=== PATIENT | female | born 1990 | race Two or more races ===

== ENCOUNTER 2019-05-13 22:12 | Emergency (ER) | payer MEDICAID ==
[~2019-05-13] VITALS: Ht 154.9 cm; Wt 88.5 kg
[2019-05-13 22:35] VITALS: BP 137/94
[2019-05-13] MEDS ORDERED: TYLENOL325 MG ORAL (22:57)
--- NOTE | 2019-05-13 22:57 | Emergency Room Report ---
History of Present Illness General Chief Complaint: Upper Respiratory Illness Source: Patient Present Illness HPI 29-year-old female presents with cough, congestion, fever/chills x2 days no aggravating leaving factors severity is mild, constant patient also reports mouth ulcers that come and go, patient wanted to have her ulcers evaluated patient presents for evaluation Allergies: Coded Allergies: No Known Allergies (Unverified , 05/13/19) Patient History Past Medical History: see triage record Social History: Reports: smoking, drug use Last Menstrual Period: 05/04 Reviewed Nursing Documentation: PMH: Agreed; PSxH: Agreed Nursing Documentation-PMH Past Medical History: No Stated History Review of Systems All Other Systems: negative except mentioned in HPI Physical Exam Vital Signs Date Time Temp Pulse Resp B/P (MAP) Pulse Ox O2 Delivery O2 Flow Rate FiO2 05/13/19 22:19 98.2 73 18 137/94 (108) 100 Room Air Sp02 EP Interpretation: reviewed, normal General Appearance: well appearing, no apparent distress, alert Head: normocephalic, atraumatic Eyes: bilateral eye PERRL, bilateral eye EOMI ENT: uvula midline, moist mucus membranes, nasal congestion, other - Aphthous ulcer lateral aspect of left tongue Neck: supple, thyroid normal, supple/symm/no masses Respiratory: lungs clear, no respiratory distress, no retraction, no accessory muscle use Cardiovascular #1: normal peripheral pulses, regular rate, rhythm, no edema, no gallop, no murmur Gastrointestinal: non tender, soft, no guarding, no rebound Musculoskeletal: normal inspection Neurologic: alert, oriented x3 Psychiatric: mood/affect normal Skin: no rash, warm/dry Medical Decision Making Diagnostic Impression: Primary Impression: Upper respiratory infection Qualified Codes: J06.9 - Acute upper respiratory infection, unspecified Additional Impression: Aphthous ulcer ER Course 29-year-old female presents most likely with a viral URI additionally patient also found to have a aphthous ulcer Supportive care disposition home with return precautions follow-up with PCP Last Vital Signs Date Time Temp Pulse Resp B/P (MAP) Pulse Ox O2 Delivery O2 Flow Rate FiO2 05/13/19 22:19 98.2 73 18 137/94 (108) 100 Room Air Disposition: HOME, SELF-CARE Condition: Stable Scripts Acetaminophen (Tylenol) 325 Mg Tablet 650 MG ORAL Q6H PRN for Prn Pain/Headache/Temp > 101, #30 TAB 0 Refills Prov: Ochoa Pham MD 05/13/19 Referrals: [facility] Sumi Coleman. [facility] Patient Instructions: Oral Ulcers, Upper Respiratory Infection, Adult Additional Instructions: The patient was provided with discharge instructions, notified to follow-up with a primary care doctor and or specialist in the next 24-48 hours, and to return to the ED if they have worsening of their symptoms. Please note that this report is being documented using [employer] technology. This can lead to erroneous entry secondary to incorrect interpretation by the dictating instrument. Ochoa Pham MD May 13, 2019 22:57
[2019-05-13 23:00] VITALS: BP 137/94
== END 2019-05-13 23:00 | disposition home or self-care (01) ==
LOC: EMR 22:40
DX: J06.9 Acute upper respiratory infection, unspecified (principal); K12.0 Recurrent oral aphthae; F17.200 Nicotine dependence, unspecified, uncomplicated
CPT/HCPCS: 81025; Z7502; 99282